=== PATIENT | female | born 1955 | race American Indian/Alaskan Native ===

== ENCOUNTER 2017-04-25 20:09 | Observation (INO) | payer MEDICARE, OTHER ==
[2017-04-25] MEDS ORDERED: Nitroglycerin 2% Ointment Foilpak UD TOP STA (20:50)
--- NOTE | 2017-04-25 21:00 | ED PDOC ---
HPI: Chest Pain Time Seen by Provider: 04/25/17 20:28 Chief Complaint (Nursing): Chest Pain Chief Complaint (Provider): Chest Pain History Per: Patient History/Exam Limitations: no limitations Onset/Duration Of Symptoms: Hrs Current Symptoms Are (Timing): Still Present Quality: "Pain" Associated Symptoms: Nausea. denies: Syncope Additional Complaint(s): 61 year old female with a past medical history of hypertension, hyperlipidemia, arthritis, gastritis and spinal stenosis presents to the ED complaining of chest pain the started around 4pm today while she was cooking. The patient states that pain is midsternum a little to the right side and feels like a heaviness. She reports that she initially thought the pain was gas. The patient states that she went to lay down and she developed a funny feeling on the right side of her body that lasted less than 1 minute but says that feeling has since resolved. Denies shortness of breath, cough, leg swelling. Patient did note some nausea prior to coming in to the ED but states that has also resolved. PMD: Dr. Peña - Risk Factors TAD Risk Factors: Pos: Hypertension Past Medical History Reviewed: Historical Data, Nursing Documentation, Vital Signs Vital Signs: Last Vital Signs Temp 98.7 F 04/26/17 16:11 Pulse 84 04/26/17 16:11 Resp 16 04/26/17 16:11 BP 130/85 04/26/17 16:11 Pulse Ox 96 04/26/17 16:11 - Medical History PMH: Arthritis, Gastritis, HTN, Hypercholesterolemia Other PMH: spinal stenosis - Surgical History Other surgeries: Tubal Ligation; hysterectomy. - Family History Family History: States: Unknown Family Hx - Social History Current smoker - smoking cessation education provided: No (Non smoker quit smoke > 20 years sanchez) Ex-Smoker (has not smoked in the last 12 months): No Alcohol: Occasional Drugs: Denies - Home Medications Home Medications: Ambulatory Orders Medication Instructions Recorded Benazepril HCl [Lotensin] 40 mg PO DAILY 04/25/17 Gabapentin [Neurontin] 300 mg PO TID 04/25/17 Methocarbamol [Robaxin] 500 mg PO DAILY 04/25/17 Ranitidine HCl [Acid Tinning Equipment Tender] 150 mg PO BID 04/25/17 Simvastatin [Simvastatin] 40 mg PO DAILY 04/25/17 amLODIPine [Norvasc] 2.5 mg PO DAILY 04/25/17 traMADol [Ultram] 50 mg PO QID PRN 04/25/17 Voltaren Ge 2 g TOP QID 5 Days 04/26/17 - Allergies Allergies/Adverse Reactions: Allergies Allergy/AdvReac Type Severity Reaction Status Date / Time No Known Allergies Allergy Verified 04/25/17 20:21 Review of Systems ROS Statement: Except As Marked, All Systems Reviewed And Found Negative Cardiovascular: Positive for: Chest Pain Respiratory: Negative for: Cough, Shortness of Breath Gastrointestinal: Positive for: Nausea. Negative for: Abdominal Pain Physical Exam - Reviewed Nursing Documentation Reviewed: Yes Vital Signs Reviewed: Yes - Physical Exam Appears: Positive for: Non-toxic, In Acute Distress Head Exam: Positive for: ATRAUMATIC, NORMOCEPHALIC Skin: Positive for: Warm, Dry Eye Exam: Positive for: EOMI, PERRL ENT: Negative for: Pharyngeal Erythema, Tonsillar Exudate Neck: Positive for: Painless ROM, Supple Cardiovascular/Chest: Positive for: Regular Rate, Rhythm, Chest Non Tender. Negative for: Murmur Respiratory: Positive for: Normal Breath Sounds. Negative for: Wheezing Gastrointestinal/Abdominal: Positive for: Soft. Negative for: Tenderness Back: Positive for: Normal Inspection. Negative for: Decreased ROM Extremity: Positive for: Normal ROM. Negative for: Pedal Edema Lymphatic: Negative for: Adenopathy Neurologic/Psych: Positive for: Alert. Negative for: Motor/Sensory Deficits - Laboratory Results Result Diagrams: 04/26/17 06:30 04/26/17 06:30 - ECG ECG: Positive for: Interpreted By Al ECG Rhythm: Positive for: Sinus Rhythm, Nonspecific Changes O2 Sat by Pulse Oximetry: 98 (RA) Pulse Ox Interpretation: Normal - Radiology X-Ray: Interpreted by Al X-Ray Interpretation: No Acute Disease - Progress Re-evaluation Time: 00:00 Condition: Unchanged Medical Decision Making Medical Decision Makin Initial Impression 61 y/o female presenting with chest pain Differential: Stress, Reflux, PE, ACS, Pneumothorax, Costochondritis Initial Plan: * Type and Screen * EKG * B-type Natriuretic * CMP * Lipase * Magnesium * Phosphorous * Thyroid stimulating Hormone * Troponin * Udip * CBC * D- Dimer * Partial Thromboplastin * Prothrombin Time * Aspirin 162mg PO * Nitro Bid * Reevaluation 12am Pt with persistent pain despite ASA, Ntg, GI cocktail. Hospitalized for chest pain r/o [place], needs serial enzymes. Documented by Bella Fernández acting as a scribe for Cherelle Corona MD. All medical record entries made by the Scribe were at my direction and personally dictated by me. I have reviewed the chart and agree that the record accurately reflects my personal performance of the history, physical exam, medical decision making, and the department course for this patient. I have also personally directed, reviewed, and agree with the discharge instructions and disposition. Disposition - Clinical Impression Clinical Impression: Chest pain Discussed With : Jose Paulino Counseled Patient/Family Regarding: Studies Performed, Diagnosis, Need For Followup - Disposition Disposition Time: 00:00 Condition: FAIR
[2017-04-25] MEDS ORDERED: Nitroglycerin 2% Ointment Foilpak UD TOP ONE (21:35)
[2017-04-25 22:14] LABS: BASO % 0.5 % (0.0-2.0); EOS # 0.1 K/uL (0.0-0.7); EOS % 1.9 % (0.0-4.0); LYMPH % 38.3 % (20.0-40.0); MEAN CELL VOLUME 89.7 fl (81.0-99.0); MEAN CORPUSCULAR HGB CONC 33.4 g/dL (33.0-37.0); MEAN PLATELET VOLUME 9.4 fl (7.2-11.7); MONO # 0.5 K/uL (0.0-0.8); MONO % 8.8 % (0.0-10.0); NEUT # 2.7 K/uL (1.8-7.0); NEUT % 50.5 % (50.0-75.0); NRBC % 0.1 % (0.0-0.0); RBC 4.01 Mil/uL (3.80-5.20); RED CELL DISTRIBUTION WIDTH 13.5 % (11.5-14.5); WHITE BLOOD COUNT 5.3 K/uL (4.8-10.8)
[2017-04-25 22:25] LABS: ALB/GLOB RATIO 1.2 (1.0-2.1); ALBUMIN 3.8 g/dL (3.5-5.0); ALT/SGPT 34 U/L (9-52); AST/SGOT 27 U/L (14-36); BLOOD UREA NITROGEN 11 mg/dl (7-17); CALCIUM 9.3 mg/dL (8.4-10.2); GFR AFRICAN-AMERICAN 55; GFR NON-AFRICAN AMERICAN 45; LIPASE 97 U/L (23-300); MAGNESIUM 1.8 MG/DL (1.6-2.3)
[2017-04-25 22:37] LABS: B-TYPE NATRIURETIC PEPTIDE 85.1 pg/ml (0-900)
[2017-04-25 22:38] LABS: INR 1.3 (0.9-1.2); PROTHROMBIN TIME 14.2 Seconds (9.8-13.1)
[2017-04-25 22:39] LABS: PARTIAL THROMBOPLASTIN TIME 34.3 Seconds (25.6-37.1)
[2017-04-25] MEDS ORDERED: Alum-Mag Hydrox-Simethicone Susp (30 mL) PO STA (23:32)
[2017-04-25] MEDS ORDERED: Alum-Mag Hydrox-Simethicone Susp (30 mL) ONE (23:35)
[2017-04-26] MEDS ORDERED: Morphine 4 MG/ML VIAL IVP STA (00:08)
[2017-04-26] MEDS ORDERED: Morphine 4 MG/ML VIAL ONE (00:44)
[2017-04-26 08:08] LABS: HEMOGLOBIN 11.7 g/dL (12.0-16.0); MEAN CELL VOLUME 90.3 fl (81.0-99.0); MEAN CORPUSCULAR HEMOGLOBIN 30.3 pg (27.0-31.0); MEAN CORPUSCULAR HGB CONC 33.5 g/dL (33.0-37.0); RBC 3.86 Mil/uL (3.80-5.20); RED CELL DISTRIBUTION WIDTH 13.9 % (11.5-14.5); WHITE BLOOD COUNT 6.4 K/uL (4.8-10.8)
[2017-04-26 08:20] LABS: BLOOD UREA NITROGEN 11 mg/dl (7-17); GFR AFRICAN-AMERICAN > 60; GFR NON-AFRICAN AMERICAN > 60; HDL CHOLESTEROL 64 MG/DL (30-70)
[2017-04-26 08:30] LABS: LDL CHOLESTEROL 90 mg/dL (0-129)
[2017-04-26] MEDS ORDERED: Methocarbamol 500 MG Tab PO SCH (09:00)
[2017-04-26] MEDS ORDERED: Enoxaparin 40 mg Syringe SC SCH (09:00)
[2017-04-26] MEDS ORDERED: Pantoprazole 40 mg EC Tab PO SCH (09:00)
--- NOTE | 2017-04-26 09:10 | CP.PCM.CON ---
History of Present Illness - History of Present Illness History of Present Illness: 61 year old female presents to the ED complaining of right sided chest pain Pain is located at Right sternal border 3rd and 4th ICS Extremely tender to the touch reproducible with palpation No radiation/SOB/VILLATORO/palpitations PMH: Hypertension Gastritis Hyperlipidemia arthritis spinal stenosis EKG: NSR Troponin: neg Past Patient History - Past Social History Smoking Status: Former Smoker - CARDIAC Hx Cardiac Disorders: Yes - PULMONARY Hx Respiratory Disorders: No - NEUROLOGICAL Hx Neurological Disorder: No - HEENT Hx HEENT Problems: No - RENAL Hx Chronic Kidney Disease: No - ENDOCRINE/METABOLIC Hx Endocrine Disorders: No - HEMATOLOGICAL/ONCOLOGICAL Hx Blood Disorders: No - INTEGUMENTARY Hx Dermatological Problems: No - MUSCULOSKELETAL/RHEUMATOLOGICAL Hx Musculoskeletal Disorders: Yes - GASTROINTESTINAL Hx Gastritis: Yes - GENITOURINARY/GYNECOLOGICAL Hx Genitourinary Disorders: No - PSYCHIATRIC Hx Psychophysiologic Disorder: No - SURGICAL HISTORY Hx Hysterectomy: Yes - ANESTHESIA Hx Anesthesia: Yes Hx Anesthesia Reactions: No Meds Allergies/Adverse Reactions: Allergies Allergy/AdvReac Type Severity Reaction Status Date / Time No Known Allergies Allergy Verified 04/25/17 20:21 - Medications Medications: Current Medications Acetaminophen (Tylenol 325mg Tab) 650 mg PO Q4 PRN PRN Reason: Pain, Mild (1-3) Amlodipine Besylate (Norvasc) 2.5 mg PO DAILY [facility] Last Admin: 04/26/17 08:05 Dose: 2.5 mg Atorvastatin Calcium (Lipitor) 20 mg PO DAILY [facility] Last Admin: 04/26/17 08:04 Dose: 20 mg Enoxaparin Sodium (Lovenox) 40 mg SC DAILY [facility] PRN Reason: Protocol Last Admin: 04/26/17 08:04 Dose: 40 mg Gabapentin (Neurontin) 300 mg PO TID [facility] Last Admin: 04/26/17 08:04 Dose: 300 mg Lisinopril (Zestril) 40 mg PO DAILY [facility] Last Admin: 04/26/17 08:05 Dose: 40 mg Methocarbamol (Robaxin) 500 mg PO DAILY [facility] Last Admin: 04/26/17 08:05 Dose: 500 mg Morphine Sulfate (Morphine) 2 mg IVP Q4 PRN PRN Reason: Pain, severe (8-10) Morphine Sulfate (Morphine) 1 mg IVP Q4 PRN PRN Reason: Pain, moderate (4-7) Last Admin: 04/26/17 08:00 Dose: 1 mg Nitroglycerin (Nitrostat Sl Tab) 0.4 mg SL Q5M PRN PRN Reason: Chest Pain Pantoprazole Sodium (Protonix Ec Tab) 40 mg PO DAILY [facility] Last Admin: 04/26/17 08:05 Dose: 40 mg Physical Exam - Constitutional Appears: Well - Eye Exam Eye Exam: Normal appearance - ENT Exam ENT Exam: Normal Exam - Respiratory Exam Respiratory Exam: NORMAL BREATHING PATTERN - Cardiovascular Exam Cardiovascular Exam: REGULAR RHYTHM Additional comments: Cheat wall at right sternal border tender to the touch - Psychiatric Exam Psychiatric exam: Anxious, Flat Affect Results - Vital Signs Recent Vital Signs: Last Vital Signs Temp 97.2 F L 04/26/17 08:27 Pulse 68 04/26/17 08:27 Resp 18 04/26/17 08:27 BP 103/59 L 04/26/17 08:27 Pulse Ox 97 04/26/17 08:27 - Labs Result Diagrams: 04/26/17 06:30 04/26/17 06:30 Labs: Laboratory Results - last 24 hr 04/25/17 04/25/17 04/25/17 21:51 21:51 21:51 WBC 5.3 RBC 4.01 Hgb 12.0 Hct 36.0 MCV 89.7 MCH 30.0 MCHC 33.4 RDW 13.5 Plt Count 153 MPV 9.4 Neut % (Auto) 50.5 Lymph % (Auto) 38.3 [place] % (Auto) 8.8 Eos % (Auto) 1.9 Baso % (Auto) 0.5 Neut # 2.7 Lymph # 2.0 [place] # 0.5 Eos # 0.1 Baso # 0.0 PT 14.2 H INR 1.3 H APTT 34.3 D-Dimer, Quantitative 162 Sodium 140 Potassium 3.9 Chloride 108 H Carbon Dioxide 27 Anion Gap 9 L BUN 11 Creatinine 1.2 Est GFR ( Amer) 55 Est GFR (Non-Af Amer) 45 Random Glucose 93 Calcium 9.3 Phosphorus 3.3 Magnesium 1.8 Total Bilirubin 0.4 AST 27 ALT 34 Alkaline Phosphatase 54 Troponin I < 0.0120 NT-Pro-B Natriuret Pep 85.1 Total Protein 7.0 Albumin 3.8 Globulin 3.2 Albumin/Globulin Ratio 1.2 Triglycerides Cholesterol LDL Cholesterol Direct HDL Cholesterol Lipase 97 TSH 3rd Generation 2.09 Blood Type Blood Type Confirm Antibody Screen BBK History Checked 04/25/17 04/25/17 04/26/17 21:51 22:55 06:30 WBC RBC Hgb Hct MCV MCH MCHC RDW Plt Count MPV Neut % (Auto) Lymph % (Auto) [place] % (Auto) Eos % (Auto) Baso % (Auto) Neut # Lymph # [place] # Eos # Baso # PT INR APTT D-Dimer, Quantitative Sodium 136 Potassium 4.1 Chloride 104 Carbon Dioxide 31 H Anion Gap 5 L BUN 11 Creatinine 0.9 Est GFR ( Amer) > 60 Est GFR (Non-Af Amer) > 60 Random Glucose 86 Calcium 9.0 Phosphorus Magnesium Total Bilirubin AST ALT Alkaline Phosphatase Troponin I < 0.0120 NT-Pro-B Natriuret Pep Total Protein Albumin Globulin Albumin/Globulin Ratio Triglycerides 68 Cholesterol 195 LDL Cholesterol Direct 90 HDL Cholesterol 64 Lipase TSH 3rd Generation 4.13 Blood Type O POSITIVE Blood Type Confirm O POSITIVE Antibody Screen Negative BBK History Checked No verified bt 04/26/17 06:30 WBC 6.4 RBC 3.86 Hgb 11.7 L Hct 34.8 MCV 90.3 MCH 30.3 MCHC 33.5 RDW 13.9 Plt Count 143 MPV Neut % (Auto) Lymph % (Auto) [place] % (Auto) Eos % (Auto) Baso % (Auto) Neut # Lymph # [place] # Eos # Baso # PT INR APTT D-Dimer, Quantitative Sodium Potassium Chloride Carbon Dioxide Anion Gap BUN Creatinine Est GFR ( Amer) Est GFR (Non-Af Amer) Random Glucose Calcium Phosphorus Magnesium Total Bilirubin AST ALT Alkaline Phosphatase Troponin I NT-Pro-B Natriuret Pep Total Protein Albumin Globulin Albumin/Globulin Ratio Triglycerides Cholesterol LDL Cholesterol Direct HDL Cholesterol Lipase TSH 3rd Generation Blood Type Blood Type Confirm Antibody Screen BBK History Checked Assessment & Plan (1) Musculoskeletal chest pain Assessment and Plan: No evidence of cardiac chest pain Pt may be discharged rec: NSAIDs Status: Acute (2) Costochondral chest pain Status: Acute
[2017-04-26] MEDS ORDERED: Nitroglycerin 0.6 mg/hr Top Patch TD SCH (10:00)
[2017-04-26] MEDS: Nitroglycerin 0.4 mg/hr Top Patch TD SCH ×2 (12:21→16:03)
--- NOTE | 2017-04-26 13:48 | RAD ---
HISTORY: ches tpain COMPARISON: No prior. TECHNIQUE: Chest PA and lateral FINDINGS: LUNGS: No active pulmonary disease. PLEURA: No significant pleural effusion identified. No pneumothorax apparent. CARDIOVASCULAR: Normal. OSSEOUS STRUCTURES: No significant abnormalities. VISUALIZED UPPER ABDOMEN: Normal. OTHER FINDINGS: None. IMPRESSION: No active disease.
--- NOTE | 2017-04-26 14:07 | CP.PCM.HP ---
Past Patient History - Past Social History Smoking Status: Former Smoker - CARDIAC Hx Cardiac Disorders: Yes - PULMONARY Hx Respiratory Disorders: No - NEUROLOGICAL Hx Neurological Disorder: No - HEENT Hx HEENT Problems: No - RENAL Hx Chronic Kidney Disease: No - ENDOCRINE/METABOLIC Hx Endocrine Disorders: No - HEMATOLOGICAL/ONCOLOGICAL Hx Blood Disorders: No - INTEGUMENTARY Hx Dermatological Problems: No - MUSCULOSKELETAL/RHEUMATOLOGICAL Hx Musculoskeletal Disorders: Yes - GASTROINTESTINAL Hx Gastritis: Yes - GENITOURINARY/GYNECOLOGICAL Hx Genitourinary Disorders: No - PSYCHIATRIC Hx Psychophysiologic Disorder: No - SURGICAL HISTORY Hx Hysterectomy: Yes - ANESTHESIA Hx Anesthesia: Yes Hx Anesthesia Reactions: No Meds Allergies/Adverse Reactions: Allergies Allergy/AdvReac Type Severity Reaction Status Date / Time No Known Allergies Allergy Verified 04/25/17 20:21 Results - Vital Signs Recent Vital Signs: Last Vital Signs Temp 97.9 F 04/26/17 12:59 Pulse 61 04/26/17 12:59 Resp 18 04/26/17 12:59 BP 118/75 04/26/17 12:59 Pulse Ox 99 04/26/17 12:59 - Labs Result Diagrams: 04/26/17 06:30 04/26/17 06:30 Labs: Laboratory Results - last 24 hr 04/25/17 04/25/17 04/25/17 21:51 21:51 21:51 WBC 5.3 RBC 4.01 Hgb 12.0 Hct 36.0 MCV 89.7 MCH 30.0 MCHC 33.4 RDW 13.5 Plt Count 153 MPV 9.4 Neut % (Auto) 50.5 Lymph % (Auto) 38.3 [place] % (Auto) 8.8 Eos % (Auto) 1.9 Baso % (Auto) 0.5 Neut # 2.7 Lymph # 2.0 [place] # 0.5 Eos # 0.1 Baso # 0.0 PT 14.2 H INR 1.3 H APTT 34.3 D-Dimer, Quantitative 162 Sodium 140 Potassium 3.9 Chloride 108 H Carbon Dioxide 27 Anion Gap 9 L BUN 11 Creatinine 1.2 Est GFR ( Amer) 55 Est GFR (Non-Af Amer) 45 Random Glucose 93 Calcium 9.3 Phosphorus 3.3 Magnesium 1.8 Total Bilirubin 0.4 AST 27 ALT 34 Alkaline Phosphatase 54 Troponin I < 0.0120 NT-Pro-B Natriuret Pep 85.1 Total Protein 7.0 Albumin 3.8 Globulin 3.2 Albumin/Globulin Ratio 1.2 Triglycerides Cholesterol LDL Cholesterol Direct HDL Cholesterol Lipase 97 TSH 3rd Generation 2.09 Blood Type Blood Type Confirm Antibody Screen BBK History Checked 04/25/17 04/25/17 04/26/17 21:51 22:55 06:30 WBC RBC Hgb Hct MCV MCH MCHC RDW Plt Count MPV Neut % (Auto) Lymph % (Auto) [place] % (Auto) Eos % (Auto) Baso % (Auto) Neut # Lymph # [place] # Eos # Baso # PT INR APTT D-Dimer, Quantitative Sodium 136 Potassium 4.1 Chloride 104 Carbon Dioxide 31 H Anion Gap 5 L BUN 11 Creatinine 0.9 Est GFR ( Amer) > 60 Est GFR (Non-Af Amer) > 60 Random Glucose 86 Calcium 9.0 Phosphorus Magnesium Total Bilirubin AST ALT Alkaline Phosphatase Troponin I < 0.0120 NT-Pro-B Natriuret Pep Total Protein Albumin Globulin Albumin/Globulin Ratio Triglycerides 68 Cholesterol 195 LDL Cholesterol Direct 90 HDL Cholesterol 64 Lipase TSH 3rd Generation 4.13 Blood Type O POSITIVE Blood Type Confirm O POSITIVE Antibody Screen Negative BBK History Checked No verified bt 04/26/17 06:30 WBC 6.4 RBC 3.86 Hgb 11.7 L Hct 34.8 MCV 90.3 MCH 30.3 MCHC 33.5 RDW 13.9 Plt Count 143 MPV Neut % (Auto) Lymph % (Auto) [place] % (Auto) Eos % (Auto) Baso % (Auto) Neut # Lymph # [place] # Eos # Baso # PT INR APTT D-Dimer, Quantitative Sodium Potassium Chloride Carbon Dioxide Anion Gap BUN Creatinine Est GFR ( Amer) Est GFR (Non-Af Amer) Random Glucose Calcium Phosphorus Magnesium Total Bilirubin AST ALT Alkaline Phosphatase Troponin I NT-Pro-B Natriuret Pep Total Protein Albumin Globulin Albumin/Globulin Ratio Triglycerides Cholesterol LDL Cholesterol Direct HDL Cholesterol Lipase TSH 3rd Generation Blood Type Blood Type Confirm Antibody Screen BBK History Checked
--- NOTE | 2017-04-26 14:40 | CP.PCM.DIS ---
Provider - Provider Date of Admission: 04/26/17 00:07 Attending physician: Jose Paulino MD Time Spent in preparation of Discharge (in minutes): 25 Hospital Course - Lab Results Lab Results: Most Recent Lab Values WBC 6.4 K/uL (4.8-10.8) 04/26/17 06:30 RBC 3.86 Mil/uL (3.80-5.20) 04/26/17 06:30 Hgb 11.7 g/dL (12.0-16.0) L 04/26/17 06:30 Hct 34.8 % (34.0-47.0) 04/26/17 06:30 MCV 90.3 fl (81.0-99.0) 04/26/17 06:30 MCH 30.3 pg (27.0-31.0) 04/26/17 06:30 MCHC 33.5 g/dL (33.0-37.0) 04/26/17 06:30 RDW 13.9 % (11.5-14.5) 04/26/17 06:30 Plt Count 143 K/uL (130-400) 04/26/17 06:30 MPV 9.4 fl (7.2-11.7) 04/25/17 21:51 Neut % (Auto) 50.5 % (50.0-75.0) 04/25/17 21:51 Lymph % (Auto) 38.3 % (20.0-40.0) 04/25/17 21:51 [place] % (Auto) 8.8 % (0.0-10.0) 04/25/17 21:51 Eos % (Auto) 1.9 % (0.0-4.0) 04/25/17 21:51 Baso % (Auto) 0.5 % (0.0-2.0) 04/25/17 21:51 Neut # 2.7 K/uL (1.8-7.0) 04/25/17 21:51 Lymph # 2.0 K/uL (1.0-4.3) 04/25/17 21:51 [place] # 0.5 K/uL (0.0-0.8) 04/25/17 21:51 Eos # 0.1 K/uL (0.0-0.7) 04/25/17 21:51 Baso # 0.0 K/uL (0.0-0.2) 04/25/17 21:51 PT 14.2 Seconds (9.8-13.1) H 04/25/17 21:51 INR 1.3 (0.9-1.2) H 04/25/17 21:51 APTT 34.3 Seconds (25.6-37.1) 04/25/17 21:51 D-Dimer, Quantitative 162 ng/mlDDU (0-230) 04/25/17 21:51 Sodium 136 mmol/l (132-148) 04/26/17 06:30 Potassium 4.1 MMOL/L (3.6-5.0) 04/26/17 06:30 Chloride 104 mmol/L (98-107) 04/26/17 06:30 Carbon Dioxide 31 mmol/L (22-30) H 04/26/17 06:30 Anion Gap 5 (10-20) L 04/26/17 06:30 BUN 11 mg/dl (7-17) 04/26/17 06:30 Creatinine 0.9 mg/dl (0.7-1.2) 04/26/17 06:30 Est GFR ( Amer) > 60 04/26/17 06:30 Est GFR (Non-Af Amer) > 60 04/26/17 06:30 Random Glucose 86 mg/dL (65-105) 04/26/17 06:30 Calcium 9.0 mg/dL (8.4-10.2) 04/26/17 06:30 Phosphorus 3.3 mg/dl (2.5-4.5) 04/25/17 21:51 Magnesium 1.8 MG/DL (1.6-2.3) 04/25/17 21:51 Total Bilirubin 0.4 mg/dl (0.2-1.3) 04/25/17 21:51 AST 27 U/L (14-36) 04/25/17 21:51 ALT 34 U/L (9-52) 04/25/17 21:51 Alkaline Phosphatase 54 U/L (38-126) 04/25/17 21:51 Troponin I < 0.0120 ng/mL (0.00-0.120) 04/26/17 06:30 NT-Pro-B Natriuret Pep 85.1 pg/ml (0-900) 04/25/17 21:51 Total Protein 7.0 G/DL (6.3-8.2) 04/25/17 21:51 Albumin 3.8 g/dL (3.5-5.0) 04/25/17 21:51 Globulin 3.2 gm/dL (2.2-3.9) 04/25/17 21:51 Albumin/Globulin Ratio 1.2 (1.0-2.1) 04/25/17 21:51 Triglycerides 68 mg/DL (0-149) 04/26/17 06:30 Cholesterol 195 mg/dL (0-199) 04/26/17 06:30 LDL Cholesterol Direct 90 mg/dL (0-129) 04/26/17 06:30 HDL Cholesterol 64 MG/DL (30-70) 04/26/17 06:30 Lipase 97 U/L (23-300) 04/25/17 21:51 TSH 3rd Generation 4.13 mIU/ML (0.46-4.68) 04/26/17 06:30 Blood Type O POSITIVE 04/25/17 21:51 Blood Type Confirm O POSITIVE 04/25/17 22:55 Antibody Screen Negative 04/25/17 21:51 BBK History Checked No verified bt 04/25/17 21:51 Discharge Exam - Head Exam Head Exam: ATRAUMATIC, NORMOCEPHALIC Discharge Plan - Follow Up Plan Condition: FAIR Disposition: HOME/ ROUTINE
[2017-04-26 16:04] VITALS: BP 130/85
[2017-04-26 16:12] VITALS: PULSE 84; RESP 16; TEMP 98.7
[2017-04-26 20:12] VITALS: O2SAT 98
--- NOTE | 2017-04-27 10:09 | CARD ---
APPROVED REPORT EKG Measurement Heart [id number] CO 130P52 [id number] <Conclusion> Normal sinus rhythm Nonspecific T wave abnormality Abnormal ECG
--- NOTE | 2017-04-27 10:09 | CARD ---
APPROVED REPORT EKG Measurement Heart [id number] RI 132P45 [id number] <Conclusion> Normal sinus rhythm Anterior infarct, age undetermined T wave abnormality, consider lateral ischemia Abnormal ECG
== END 2017-04-26 16:20 | disposition home or self-care (01) ==
LOC: H.ER 20:09 → H.ERHOLD 04-26 00:07 → H.TEL 04-26 01:23
PROVIDERS: ADMIT Internal Medicine; ATTEND Internal Medicine
DX: R07.89 Other chest pain (principal); E78.00 Pure hypercholesterolemia, unspecified; E78.5 Hyperlipidemia, unspecified; I10 Essential (primary) hypertension; Z79.899 Other long term (current) drug therapy; Z87.891 Personal history of nicotine dependence; Z90.710 Acquired absence of both cervix and uterus; K29.70 Gastritis, unspecified, without bleeding; M19.90 Unspecified osteoarthritis, unspecified site; M48.00 Spinal stenosis, site unspecified
CPT/HCPCS: 36415; 71020; 80048; 80053; 80061; 83690; 83735; 83880; 84100; 84443; 84484; 85025; 85027; 85378; 85610; 85730; 86850; 86900; 93005; 96374; 99284; G0378; J1650; J2270